=== PATIENT | female | born 1960 | race Asian ===

== ENCOUNTER 2019-09-05 07:22 | Day surgery (SDC) | payer BC ==
[2019-09-04 10:29] VITALS: BMI 23.5
[~2019-09-05 07:22] MED LIST: EPINEPHrine 0.3 MG in Ophthalmic Irrigation Solution 500 ML IRR SCH
[2019-09-05] MEDS ORDERED: Phenylephrine 2.5% Ophth Soln 5 ML BOT ONE (07:40)
[2019-09-05] MEDS ORDERED: Cyclopentolate 1% Opth Drop 2 ML BOT ONE (07:40)
[2019-09-05] MEDS ORDERED: Fentanyl 100 MCG/2 ML VIAL ONE (09:13)
--- NOTE | 2019-09-05 12:05 | OP ---
DATE OF PROCEDURE: 09/05/2019 PREOPERATIVE DIAGNOSIS: Dislocated intra-ocular lens, right eye. POSTOPERATIVE DIAGNOSIS: Dislocated intra-ocular lens, right eye. PROCEDURE PERFORMED: Intraocular lens repositioning, right eye. ANESTHESIA: General endotracheal anesthesia. PROCEDURE IN DETAIL: The patient was identified in the preoperative holding area where appropriate informed consent for the planned surgical procedure was obtained. The patient was transported to the operative suite where appropriate cardiopulmonary monitoring established. Local anesthesia was obtained using retrobulbar block. The patient was prepped and draped in the usual sterile manner for ophthalmic surgery in the right eye. Lid speculum was placed in the right eye. Trocars placed supratemporally, inferotemporally, and supranasally. Infusion line was placed inferotemporally. A 1-mm side-port incision was created and a Sinskey hook was inserted into the eye. The Sinskey hook was used to grasp the opposite edge of the IOL and the IOL was then slowly repositioned into the visual axis. Previously existing sutures were noted to be tight and intact. Miochol was injected into the eye to constrict the pupil and noticing good pupillary roundness and full coverage of the pupil with the optic. Trocars were removed. Eye was noted to retain pressure well. Retrobulbar Kenalog and subconjunctival Ancef were placed. Antibiotic ointment was placed. The eye was patched and shielded. The patient was taken to postoperative recovery unit in good condition, having suffered no immediate perioperative complications. The patient was instructed to keep patch and shield on, avoid lifting or bending, followup appointment with Dr. Mijares. Job ID: [id number]
[2019-09-05] MEDS ORDERED: Dexamethasone 20 MG/5 ML VIAL ONE (12:16)
[2019-09-05] MEDS ORDERED: Triamcinolone 40 MG/ML VIAL ONE (12:16)
[2019-09-05] MEDS ORDERED: Lidocaine 1% PF 5 ML VIAL ONE ×2 (12:16)
[2019-09-05] MEDS ORDERED: CEFAZOLIN 1 GM VIAL ONE (12:16)
[2019-09-05] MEDS ORDERED: Lidocaine 4% PF 5 ML AMP ONE (12:16)
[2019-09-05] MEDS ORDERED: PROPOFOL 200 MG/20 ML VIAL ONE (12:16)
[2019-09-05] MEDS ORDERED: Bupivacaine PF 0.75% SDV 10 ML ONE (12:16)
[2019-09-05] MEDS ORDERED: Maxitrol 0.1% Opth Oint 3.5 GM TUBE ONE (12:16)
[2019-09-05] MEDS ORDERED: PHENYLEPHRINE-NS 100 MCG/ML 10 ML SYRINGE ONE (12:16)
[2019-09-05] MEDS ORDERED: Ondansetron PF 4 MG/2 ML Vial ONE (12:16)
== END 2019-09-05 13:13 | disposition home or self-care (01) ==
LOC: SDC 07:22
PROVIDERS: ATTEND Ophthalmology Retina Specialist
PROC: 08RJ3JZ Replacement of Right Lens with Synthetic Substitute, Percutaneous Approach (ICD-10-PCS; principal; 2019-09-05)
DX: T85.22XA Displacement of intraocular lens, initial encounter (principal); Z79.899 Other long term (current) drug therapy
CPT/HCPCS: J0171; J0690; J1100; J2001; J2405; J2704; J3010; J3301; J3490